=== PATIENT | male | born 1930 | race Caucasian/White ===

== ENCOUNTER 2017-07-05 06:51 | Day surgery (SDC) | payer MEDICARE, BC ==
[~2017-07-05] VITALS: Ht 177.8 cm; Wt 66.9 kg
[~2017-07-05 06:51] MED LIST: NORCO 325 MG-51 TAB PO; PRINIVIL10 MG PO
[2017-07-05] MEDS ORDERED: ASPIRIN 81M81 MG/TA2 PO (07:06)
[2017-07-05 07:24] VITALS: BP 130/76; PULSE 62; TEMP 98.5
[2017-07-05 08:25] VITALS: BP 79/55; PULSE 71; TEMP 97
[2017-07-05 08:40] VITALS: BP 93/47; PULSE 72
[2017-07-05 08:55] VITALS: BP 83/50; PULSE 66
[2017-07-05 09:06] VITALS: BP 82/49; PULSE 66
== END 2017-07-05 09:20 | disposition home or self-care (01) ==
LOC: SDCO 06:51
DX: Z08 Encounter for follow-up examination after completed treatment for malignant neoplasm (principal); Z85.038 Personal history of other malignant neoplasm of large intestine; Z93.3 Colostomy status; I10 Essential (primary) hypertension; Z68.24 Body mass index [BMI] 24.0-24.9, adult
CPT/HCPCS: OP; J2250; J3010; J7030